=== PATIENT | male | born 1975 | race Native Hawaiian/Other Pacific Islander ===

== ENCOUNTER 2018-01-11 07:50 | Observation (INO) ==
[2018-01-12] MEDS ORDERED: Acetaminophen 500 MG Tablet PO PRN (02:58)
[2018-01-12] MEDS ORDERED: Aspirin 325 MG Tablet PO SCH (09:00)
[2018-01-12] MEDS ORDERED: Regadenoson Inj 0.4 MG/5 ML Syringe IV.PUSH ONE (10:03)
--- NOTE | 2018-01-12 12:50 | NM ---
EXAM DATE: 01/12/2018 12:37 PM EDT AGE/SEX: 42 years / Male INDICATIONS:Angina. . Left chest pain radiating to the left arm with dyspnea and diaphoresis. CLINICAL DATA: This is the patient's initial encounter. Patient reports that signs and symptoms have been present for 1 day and indicates a pain score of 5/10. MEDICAL/SURGICAL HISTORY: Hypertension. Hypercholesterolemia. CABG. COMPARISON: No prior exams available for comparison. DOSE: 35 mCi Tc 99m Myoview at stress 11 mCi [id number] at rest 0.4 mg Lexiscan STRESS SYMPTOMS: Dyspnea. EJECTION FRACTION: 65 % TECHNIQUE: The patient underwent pharmacologic stress with infusion of prescribed dose. Continuous ECG tracing was monitored during stress. Gated SPECT imaging was performed after stress and conventi onal SPECT imaging was performed at rest. The examination was performed on a SPECT/CT scanner, both attenuation and non-corrected datasets were reviewed. FINDINGS: The best perfused myocardium is the anterior wall followed by the septum. There are no fixed defects to suggest infarction. There is no redistribution to suggest ischemia. However the activity does obsc ure the inferior wall. Gated Study: There are intact wall motion and wall thickening without hypokin etic or dyskinetic segments. The ejection fraction is calculated at 65%. RISK CATEGORY: Low (<1% Annual Motality Rate) CONCLUSION: 1. Gut activity obscuring the inferior wall. 2. There are no other areas redistribution to suggest ischemia. Electronically signed by: Umesh Holland MD 01/12/2018 12:48 PM EDT
--- NOTE | 2018-04-15 12:48 | TR ---
Date Performed: 01/12/2018 Time Performed: 11:17:44 DOCTOR: Angel Cates DRUG LIST: CLINICAL HISTORY: CHEST PAIN REASON FOR TEST: CHEST PAIN REASON FOR ENDING: OBSERVATION: CONCLUSION: COMMENTS: Lexiscan stress test was performed under standard four minute protocol. Radionuclide was injected one minute prior to ending the test. No electrocardiographic abormalities were present t o suggest ischemia. Nuclear imaging and interpretation are pending.
== END 2018-01-12 15:05 | disposition home or self-care (01) ==
LOC: UNDODISOB → NEPHCDU 07:50 → NEDA 07:50 → NEPHCDU 13:22
PROVIDERS: ADMIT Internal Medicine Interventional Cardiology; ATTEND Internal Medicine Interventional Cardiology